=== PATIENT | female | born 1985 | race Caucasian/White ===

== ENCOUNTER 2016-11-28 17:41 | Outpatient (CLI) | payer OTHER ==
[2016-11-29 15:13] LABS: CHLAMYDIA DNA SDA PROBETEC Negative (Negative); GC DNA SDA PROBETEC Negative (Negative)
== END 2016-11-28 18:30 | disposition home or self-care (01) ==
LOC: EEVIPCON 17:41 → LAB 17:41
PROVIDERS: ATTEND General Practice
DX: Z11.3 Encounter for screening for infections with a predominantly sexual mode of transmission (principal)
CPT/HCPCS: 36415-UA; 86592-TC; 86703-TC; 87491-90